=== PATIENT | female | born 1930 | race Caucasian/White ===

== ENCOUNTER 2017-02-06 10:55 | Emergency (ER) | payer MEDICARE ==
[~2017-02-06] VITALS: Ht 157.5 cm; Wt 63.5 kg
--- NOTE | 2017-02-06 11:29 | RAD ---
Exam: AP portable chest. History: Fell this morning. Comparison: None. Findings: Cardiac silhouette appears at the upper limits of normal for size given positioning. Aortic atherosclerosis and tortuosity is seen. Mitral annular calcifications are present. Lungs are without infiltrate. No pneumothorax or pleural effusion is appreciated. Impression: 1. No acute cardiopulmonary process.
[2017-02-06 12:20] LABS: INR 1.1 (0.8-1.1); PROTHROMBIN TIME PATIENT 13.3 SEC (11.7-14.0)
--- NOTE | 2017-02-06 12:24 | PHYS DOC ---
Past Medical History Past Medical History: Dementia, High Cholesterol Adult General Chief Complaint Chief Complaint: MECHANICAL FALL HPI HPI Patient is a 86 year old female with a history of dementia, high cholesterol, who presents today to be evaluated her [facility] facility staff noted she had a contusion to the forehead when she showed up for breakfast this morning. Nobody knows if she fell or not but she was checked at night and had no injuries or bruising. Patient is pleasantly confused. Patient is oriented to self only. Family is in the ED who are giving some of the history. Review of Systems Review of Systems Constitutional: Denies fever or chills [] Eyes: Denies change in visual acuity, redness, or eye pain [] HENT: Denies nasal congestion or sore throat [] Respiratory: Denies cough or shortness of breath [] Cardiovascular: No additional information not addressed in HPI [] GI: Denies abdominal pain, nausea, vomiting, bloody stools or diarrhea [] : Denies dysuria or hematuria [] Musculoskeletal: Denies back pain or joint pain [] Integument: Forehead contusion Neurologic: Denies headache, focal weakness or sensory changes [] Endocrine: Denies polyuria or polydipsia [] Allergies Allergies Allergies Coded Allergies Type Severity Reaction Last Updated Verified Penicillins Allergy Intermediate 02/06/17 Yes Sulfa (Sulfonamide Antibiotics) Allergy Intermediate 02/06/17 Yes ciprofloxacin Allergy Intermediate 02/06/17 Yes moxifloxacin Allergy Intermediate 02/06/17 Yes Physical Exam Physical Exam Constitutional: Well developed, well nourished, no acute distress, non-toxic appearance. [] HENT: Normocephalic, atraumatic, bilateral external ears normal, oropharynx moist, no oral exudates, nose normal. [] Eyes: PERRLA, EOMI, conjunctiva normal, no discharge. [] Neck: Normal range of motion, no tenderness, supple, no stridor. [] Cardiovascular:Heart rate regular rhythm, no murmur [] Lungs & Thorax: Bilateral breath sounds clear to auscultation [] Abdomen: Bowel sounds normal, soft, no tenderness, no masses, no pulsatile masses. [] Skin: Right forehead with a contusion vertically oriented approximately 5 x 4 cm. There is also abrasion on the nose. There is a 1 cm abrasion on the top of the right foot. There is another tiny 0.5 cm abrasion on the right ankle. Back: No tenderness, no CVA tenderness. [] Extremities: No tenderness, no cyanosis, no clubbing, ROM intact, no edema. [] Neurologic: Alert and oriented X 3, normal motor function, normal sensory function, no focal deficits noted. [] Psychologic: Affect normal, judgement normal, mood normal. [] Current Patient Data Vital Signs Vital Signs Date Time Temp Pulse Resp B/P (MAP) Pulse Ox O2 Delivery O2 Flow Rate FiO2 02/06/17 11:06 98.7 58 18 156/73 (100) 96 Room Air 98.7 Lab Values Laboratory Tests Test 02/06/17 11:56 02/06/17 12:40 02/06/17 13:10 White Blood Count 5.2 x10^3/uL (4.0-11.0) Red Blood Count 3.54 x10^6/uL (3.50-5.40) Hemoglobin 9.6 g/dL (12.0-15.5) L Hematocrit 29.9 % (36.0-47.0) L Mean Corpuscular Volume 84 fL (79-100) Mean Corpuscular Hemoglobin 27 pg (25-35) Mean Corpuscular Hemoglobin Concent 32 g/dL (31-37) Red Cell Distribution Width 15.1 % (11.5-14.5) H Platelet Count 281 x10^3/uL (140-400) Neutrophils (%) (Auto) 64 % (31-73) Lymphocytes (%) (Auto) 21 % (24-48) L Monocytes (%) (Auto) 12 % (0-9) H Eosinophils (%) (Auto) 3 % (0-3) Basophils (%) (Auto) 1 % (0-3) Neutrophils # (Auto) 3.3 x10^3uL (1.8-7.7) Lymphocytes # (Auto) 1.1 x10^3/uL (1.0-4.8) Monocytes # (Auto) 0.6 x10^3/uL (0.0-1.1) Eosinophils # (Auto) 0.1 x10^3/uL (0.0-0.7) Basophils # (Auto) 0.0 x10^3/uL (0.0-0.2) Prothrombin Time 13.3 SEC (11.7-14.0) Prothrombin Time INR 1.1 (0.8-1.1) Sodium Level 144 mmol/L (136-145) Potassium Level 5.2 mmol/L (3.5-5.1) H Chloride Level 108 mmol/L (98-107) H Carbon Dioxide Level 26 mmol/L (21-32) Anion Gap 10 (6-14) Blood Urea Nitrogen 36 mg/dL (7-20) H Creatinine 1.2 mg/dL (0.6-1.0) H Estimated GFR (Cockcroft-Gault) 42.4 Glucose Level 101 mg/dL (70-99) H Calcium Level 9.1 mg/dL (8.5-10.1) Magnesium Level 2.3 mg/dL (1.8-2.4) Creatine Kinase 45 U/L (26-192) Creatine Kinase MB (Mass) 1.2 ng/mL (0.0-3.6) Creatine Kinase MB Relative Index % (0-4) Troponin I Quantitative < 0.017 ng/mL (0.000-0.055) BO-Rwa-S-Type Natriuretic Peptide 1730 pg/mL (0-449) H Lactic Acid Level 1.1 mmol/L (0.4-2.0) Urine Collection Type U cath Urine Color Yellow Urine Clarity Clear Urine pH 5.5 Urine Specific [place] 1.015 Urine Protein Negative mg/dL (NEG-TRACE) Urine Glucose (UA) Negative mg/dL (NEG) Urine Ketones (Stick) Negative mg/dL (NEG) Urine Blood Negative (NEG) Urine Nitrite Negative (NEG) Urine Bilirubin Negative (NEG) Urine Urobilinogen Dipstick 0.2 mg/dL (0.2 mg/dL) Urine Leukocyte Esterase Large (NEG) Urine RBC 0 /HPF (0-2) Urine WBC >40 /HPF (0-4) Urine Squamous Epithelial Cells Mod /LPF Urine Bacteria Moderate /HPF (0-FEW) Urine Hyaline Casts Moderate /HPF Urine Mucus Mod /LPF Urine Opiates Screen Neg (NEG) Urine Methadone Screen Neg (NEG) Urine Barbiturates Neg (NEG) Urine Phencyclidine Screen Neg (NEG) Urine Amphetamine/Methamphetamine Neg (NEG) Urine Benzodiazepines Screen Neg (NEG) Urine Cocaine Screen Neg (NEG) Urine Cannabinoids Screen Neg (NEG) Urine Ethyl Alcohol Neg (NEG) Laboratory Tests 02/06/17 11:56 Laboratory Tests 02/06/17 11:56 EKG EKG [] Radiology/Procedures Radiology/Procedures []PROCEDURE: PORTABLE CHEST 1V Exam: AP portable chest. History: Fell this morning. Comparison: None. Findings: Cardiac silhouette appears at the upper limits of normal for size given positioning. Aortic atherosclerosis and tortuosity is seen. Mitral annular calcifications are present. Lungs are without infiltrate. No pneumothorax or pleural effusion is appreciated. Impression: 1. No acute cardiopulmonary process. DICTATED and SIGNED BY: JOSE MOLINA MD DATE: 02/06/171125 CC: REECE HENSON FOIL WRAPPER; NON,STAFF ~ PROCEDURE: CT HEAD AND MAXILLOFACIAL WO Indication fall, closed head injury. Injury to the face. The head and maxillofacial structures were imaged. Maxillofacial images were reformatted in the coronal and sagittal planes. No prior imaging of the head is available. CT head: Findings. Soft tissue swelling over the right forehead is noted. An acute calvarial finding is not seen. There is evidence for sinus disease. There is partial opacification of the diminutive frontal sinuses. There is significant opacification of right ethmoid air cells and complete opacification of the right maxillary sinus. The sphenoid sinus appears unremarkable. Some debris is seen within the dependent portion of the left maxillary sinus. No subdural or epidural hematoma is seen. There is significant atrophy. There is increased lucency in the deep white matter compatible with microvascular disease. There is no hemorrhage. An acute finding is not apparent. There are degenerative changes in the visualized cervical spine. There is suggested mild basilar invagination. Maxillofacial CT: Findings. A significant soft tissue finding is not seen. The zygomatic arches appear normal. The mandible appears unremarkable. No maxillary fracture is seen. The nasal bone appears unremarkable. No orbital fracture is seen. No definite facial fracture is apparent. IMPRESSION: Chronic changes in the head. No acute finding seen. Significant opacification of some of the paranasal sinuses suggesting sinusitis. No facial fracture seen Course & Med Decision Making Course & Med Decision Making Pertinent Labs and Imaging studies reviewed. (See chart for details) This is a pleasantly confused demented patient from a [facility] who presents today possibly status post falling. Patient per [facility] report showed up to the dining room for breakfast with a forehead contusion. Patient not able to explain how she got the contusion. CT of the head and maxillofacial was negative for any acute findings. Chest x- ray was negative for any acute findings. Labs with nothing really acute. Her heart rate was noted to run low from 47's to high 50s. We did contact the [facility]. They state patient has chronic bradycardia. She follows up with her own doctor in the [facility]. Urine was positive for UTI but appears contaminated. Due to inability to follow- up with cultures we went ahead and put patient on MicroBid. She was discharged back to the [facility]. Dragon Disclaimer Dragon Disclaimer This electronic medical record was generated, in whole or in part, using a voice recognition dictation system. Departure Departure Impression: Primary Impression: Forehead contusion Additional Impressions: Urinary tract infection Fall from standing Bradycardia Disposition: 05 TRANSFER OTHER Condition: STABLE Referrals: CAT GIL MD (PCP) Follow-up with your doctor in one to 3 days. Patient Instructions: Contusion, [id number], Fall Prevention and Home Safety , Urinary Tract Infection Additional Instructions: You were seen with bruising suspicious for falling. You CT scan of the head and face was negative for any acute findings. Your urine shows you have a urinary tract infection. We will put you on antibiotics for 7 days. Ensure you complete them. Scripts Nitrofurantoin Macrocrystal (MACRODANTIN) 100 Mg Capsule 1 CAP PO BID, #14 CAP Prov: REECE HENSON APRN 02/06/17 Problem Qualifiers Primary Impression: Forehead contusion Encounter type: initial encounter Qualified Codes: S00.83XA - Contusion of other part of head, initial encounter Additional Impressions: Urinary tract infection Urinary tract infection type: acute cystitis Hematuria presence: without hematuria Qualified Codes: N30.00 - Acute cystitis without hematuria Fall from standing Encounter type: initial encounter Qualified Codes: W19.XXXA - Unspecified fall, initial encounter REECE HENSON APRN Feb 06, 2017 12:24
[2017-02-06 12:26] LABS: CALCIUM 9.1 mg/dL (8.5-10.1); CREATININE 1.2 mg/dL (0.6-1.0); GFR 42.4; MAGNESIUM 2.3 mg/dL (1.8-2.4)
[2017-02-06 12:27] LABS: BASO % 1 % (0-3); EOS % 3 % (0-3); HEMATOCRIT 29.9 % (36.0-47.0); HEMOGLOBIN 9.6 g/dL (12.0-15.5); LYMPH # 1.1 x10^3/uL (1.0-4.8); LYMPH % 21 % (24-48); MEAN CORPUSCULAR HEMOGLOBIN 27 pg (25-35); MEAN CORPUSCULAR HGB CONC 32 g/dL (31-37); MEAN CORPUSCULAR VOLUME 84 fL (79-100); MONO % 12 % (0-9); NEUT % 64 % (31-73); PLATELET COUNT 281 x10^3/uL (140-400); POTASSIUM 5.2 mmol/L (3.5-5.1); RED BLOOD COUNT 3.54 x10^6/uL (3.50-5.40); RED CELL DISTRIBUTION WIDTH 15.1 % (11.5-14.5); WHITE BLOOD COUNT 5.2 x10^3/uL (4.0-11.0)
--- NOTE | 2017-02-06 12:34 | RAD ---
Indication fall, closed head injury. Injury to the face. The head and maxillofacial structures were imaged. Maxillofacial images were reformatted in the coronal and sagittal planes. No prior imaging of the head is available. CT head: Findings. Soft tissue swelling over the right forehead is noted. An acute calvarial finding is not seen. There is evidence for sinus disease. There is partial opacification of the diminutive frontal sinuses. There is significant opacification of right ethmoid air cells and complete opacification of the right maxillary sinus. The sphenoid sinus appears unremarkable. Some debris is seen within the dependent portion of the left maxillary sinus. No subdural or epidural hematoma is seen. There is significant atrophy. There is increased lucency in the deep white matter compatible with microvascular disease. There is no hemorrhage. An acute finding is not apparent. There are degenerative changes in the visualized cervical spine. There is suggested mild basilar invagination. Maxillofacial CT: Findings. A significant soft tissue finding is not seen. The zygomatic arches appear normal. The mandible appears unremarkable. No maxillary fracture is seen. The nasal bone appears unremarkable. No orbital fracture is seen. No definite facial fracture is apparent. IMPRESSION: Chronic changes in the head. No acute finding seen. Significant opacification of some of the paranasal sinuses suggesting sinusitis. No facial fracture seen PQRS Compliance Statement: One or more of the following individualized dose reduction techniques were utilized for this examination: 1. Automated exposure control 2. Adjustment of the mA and/or kV according to patient size 3. Use of iterative reconstruction technique
--- NOTE | 2017-02-06 12:37 | EKG ---
[facility] [address] [place] [address] Test Date: 2017-02-06 Test Time: 12:04:47 Pat Name: TIFFANIE BILLINGS Department: Room: Gender: F Media Marketing Manager: : [id number] Requested By: REECE HENSON Order Number: [id number] Reading MD: Amol Luna Measurements Intervals [place] Rate: 46 P: TX: QRS: -51 QRSD: 86 T: 56 QT: 474 QTc: 416 Interpretive Statements SR LAD NON-SPECIFIC ST/T CHANGES Electronically Signed On 02-09-2017 12:58:06 CDT by Amol Luna
[2017-02-06 12:39] LABS: CKMB MASS 1.2 ng/mL (0.0-3.6); CREATINE KINASE 45 U/L (26-192)
[2017-02-06] MEDS ORDERED: ASPI-482 PO (12:55)
[2017-02-06] MEDS ORDERED: ALBU0.63 NEB (12:55)
[2017-02-06] MEDS ORDERED: CELE200C PO (12:57)
[2017-02-06] MEDS ORDERED: LORA10TA68 PO (13:00)
[2017-02-06] MEDS ORDERED: OMEG1CAP6 PO (13:26)
[2017-02-06] MEDS ORDERED: FURO-69 PO (13:27)
[2017-02-06] MEDS ORDERED: LEVO25TA4 PO (13:28)
[2017-02-06] MEDS ORDERED: ESCI10TA PO (13:29)
[2017-02-06] MEDS ORDERED: LOPE2TAB56 PO (13:30)
[2017-02-06] MEDS ORDERED: MAG355OR12 PO (13:32)
[2017-02-06] MEDS ORDERED: MAG360OR24 PO (13:32)
[2017-02-06] MEDS ORDERED: MELA3TAB PO (13:33)
[2017-02-06] MEDS ORDERED: [UNRECOGNIZED DRUG - CODE] MC (13:35)
[2017-02-06] MEDS ORDERED: METO25TA4 PO (13:36)
[2017-02-06] MEDS ORDERED: MAGN2400 PO (13:36)
[2017-02-06] MEDS ORDERED: POLY255P PO (13:38)
[2017-02-06] MEDS ORDERED: MEMA10TA PO (13:39)
--- NOTE | 2017-02-06 13:40 | ACF ---
Admit Criteria Forms Admit Criteria Forms Admit Criteria Forms MENTAL STATUS CHANGE Clinical Indications for Inpatient Care (Place 'X' for any and all applicable criteria): Ongoing inpatient care may be needed for 1 or more of the following(1)(2)(3)(5)( 6): [ ]I. Suspected serious etiology (eg, medical disorder, NEEDLE LOOM OPERATOR event) of altered mental status [ ]II. Danger to self or others not manageable at lower level of care [ ]III. Grave disability (eg, inability to perform self care necessary at lower level of care) [ ]IV. Agitation or inappropriate behavior interfering with care for primary condition (eg, attempting to discontinue lines or drains prematurely, unable to cooperate with respiratory care) [ ]V. Delirium [A] [D][E] as described by 1 or more of the following(26): [ ]a) Delirium due to alcohol or sedative [F] withdrawal [ ]b) Delirium of uncertain etiology that has not responded to appropriate empiric treatment [ ]c) Delirium that prevents performance of a life-sustaining function (eg, feeding or hydrating oneself) [X]. General contraindications and/or Inappropriate clinical situations for Observational Care in patients with Mental Status Change, when ANY ONE of the following is required: [X]a) Prediction of prolongation of LOS based on ANY ONE of the following may be considered as a contraindication for observational care 2, 3, 4, 5, 6, 7, 8, 9, 10, 11 [X]i) Age > 65 yrs. [X]ii) Patient arriving by ambulance [ ]iii) Patient with high acuity [ ]iv) Patient requiring vital sign monitoring [ ]v) Patient on IV medication [ ]b) Systolic blood pressures greater than or equal to 180mmHg 3, 12 [ ]c) Patient with altered mental status including delirium and other alteration of consciousness, (3) [ ]d) Patient whose discharge disposition will be to a halfway home or rehabilitation home should not be managed in Emergency Department Observation Unit. CMS rule requires 3 days hospital stay before such placement.3,13 [ ]e) Patient with failure to thrive due to broad array of etiologies 3,16,17 [ ]f) Inability to ambulate 3,14 Extended stay beyond goal length of stay for the primary condition may be needed until ALL of the following are present(3)(5): [ ]a) Underlying medical etiology of mental status change is absent, or has been established and adequately treated [ ]b) Danger to self or others is absent or manageable at lower level of care. [ ]c) Behavior crisis management, including physical or chemical restraints, is not required or available at lower level of car [ ]d) Substance or alcohol withdrawal is absent or manageable at lower level of care. [ ]e) Behavioral symptoms (eg, agitation, somnolence, inappropriate behavior) are absent, or are manageable at lower level of care. The original [facility] [employer] content created by [facility] has been revised. The portions of the content which have been revised are identified through the use of italic text or in bold, and [facility] has neither reviewed nor approved the modified material. All other unmodified content is copyright [facility]. Please see references footnoted in the original [facility] [employer] edition 2016 CLARA DUCKWORTH Feb 06, 2017 13:40
[2017-02-06] MEDS ORDERED: POTA99TA10 PO (13:41)
[2017-02-06 13:43] LABS: BARBITURATES NEG (NEG); BENZODIAZEPINES NEG (NEG); CANNABINOIDS NEG (NEG); COCAINE NEG (NEG); METHADONE NEG (NEG); OPIATES NEG (NEG); PHENCYCLIDINE NEG (NEG)
[2017-02-06] MEDS ORDERED: SENN8.6T67 PO (13:44)
[2017-02-06] MEDS ORDERED: ACET500T33 PO ×2 (13:44→13:46)
[2017-02-06] MEDS ORDERED: RISP1TAB3 PO (13:44)
[2017-02-06] MEDS ORDERED: CHOL100013 PO (13:46)
[2017-02-06] MEDS ORDERED: ACET325T9 PO (13:46)
[2017-02-06 14:03] LABS: BILIRUBIN,URINE NEGATIVE (NEG); GLUCOSE,URINE NEGATIVE (NEG); NITRITE,URINE NEGATIVE (NEG); PH,URINE 5.5; PROTEIN,URINE NEGATIVE (NEG-TRACE); UROBILINOGEN,URINE 0.2 mg/dL (0.2 mg/dL)
[2017-02-06 14:30] LABS: BACTERIA,URINE MODERATE /HPF (0-FEW); RBC,URINE 0 /HPF (0-2); SQUAMOUS EPITHELIAL CELL,UR MOD /LPF; WBC,URINE >40 /HPF (0-4)
[2017-02-06] MEDS ORDERED: NITR100C63 PO (14:52)
[2017-02-06 14:55] VITALS: BP 144/69
== END 2017-02-06 15:10 | disposition home or self-care (01) ==
LOC: ER 10:55 → EDBD 10:55 → ER 15:10
DX: S00.83XA Contusion of other part of head, initial encounter (principal); N30.00 Acute cystitis without hematuria; R00.1 Bradycardia, unspecified; E78.00 Pure hypercholesterolemia, unspecified; F03.90 Unspecified dementia, unspecified severity, without behavioral disturbance, psychotic disturbance, mood disturbance, and anxiety; Z88.0 Allergy status to penicillin; Z88.1 Allergy status to other antibiotic agents; Z88.2 Allergy status to sulfonamides; W19.XXXA Unspecified fall, initial encounter; Y93.89 Activity, other specified; Y92.89 Other specified places as the place of occurrence of the external cause; Y99.8 Other external cause status
CPT/HCPCS: 36415; 51701; 70450; 70486; 71010; 80048; 80305; 81001; 82553; 83605; 83735; 83880; 84484; 85027; 85610; 87086; 93005; G0481; 99285-25